=== PATIENT | female | born 1980 | race Caucasian/White ===

== ENCOUNTER 2021-05-02 02:05 | Emergency (ER) | payer OTHER ==
[2021-05-02 02:52] LABS: HEMOGLOBIN 12.6 gm/dl (12.3-15.3); RED BLOOD COUNT 5.15 M/UL (4.00-5.10); WHITE BLOOD COUNT 12.8 K/UL (4.5-11.0)
[2021-05-02] MEDS ORDERED: TESSALON PERLE100 MG PO (03:16)
[2021-05-02] MEDS ORDERED: PROVENTIL HFA6.7 GM INH (03:16)
[2021-05-02 03:21] LABS: BUN/CREATININE RATIO 18 (0-10)
[2021-05-02] MEDS ORDERED: DOXYCYCLINE MO100 MG PO (03:53)
== END 2021-05-02 04:20 | disposition home or self-care (01) ==
LOC: ER1 02:05
PROVIDERS: Physician Assistant
DX: J18.9 Pneumonia, unspecified organism (principal); Z86.16 Personal history of COVID-19
CPT/HCPCS: 71045; 80053; 85025; 93005; 99285